=== PATIENT | female | born 1975 | race Caucasian/White ===

== ENCOUNTER 2019-02-11 16:25 | Emergency (ER) | payer MEDICAID | END 2019-02-11 20:03 | disposition home or self-care (01) | LOC: FTE 16:25 | DX: R05 Cough (principal) | CPT/HCPCS: 99283; Z7502 ==

== ENCOUNTER 2019-02-23 09:13 | Emergency (ER) | payer MEDICAID | END 2019-02-23 13:00 | disposition home or self-care (01) | LOC: FTE 09:13 | DX: R05 Cough (principal) | CPT/HCPCS: 71045; 99283-25 ==